=== PATIENT | male | born 1995 | race Caucasian/White ===

== ENCOUNTER 2019-06-02 14:39 | Inpatient (IN) | payer OTHER, MEDICAID ==
[~2019-06-02] VITALS: Ht 170.2 cm; Wt 73.2 kg
[2019-06-02] MEDS ORDERED: RISP1 PO (19:55)
[2019-06-02] MEDS ORDERED: PROZ10 PO (19:55)
[2019-06-02] MEDS ORDERED: HALOPERIDOL 5 MG TABLET PO PRN (21:15)
[2019-06-02] MEDS ORDERED: LORazepam 2 MG TABLET PO PRN (21:15)
[2019-06-02] MEDS ORDERED: ZOLPIDEM TARTRATE 10 MG TABLET PO PRN (21:15)
[2019-06-02 21:36] VITALS: BP 114/66
[2019-06-02] MEDS ORDERED: INFLUENZA VIRUS VACCINE QVS 2019-20 (3YR+)/PF 60 MCG/0.5 ML SYRINGE IM ONE (21:45)
[2019-06-03 06:13] VITALS: BP 100/60
[2019-06-03 06:16] VITALS: BP 100/60
[2019-06-03 08:00] VITALS: BP 105/48
[2019-06-03] MEDS ORDERED: BACITRACIN 28.4 GM OINTMENT TP PRN (08:00)
[2019-06-03] MEDS ORDERED: CloNIDine HCL 0.1 MG TABLET PO PRN (08:00)
[2019-06-03] MEDS ORDERED: ACETAMINOPHEN 325 MG TABLET PO PRN (08:00)
[2019-06-03] MEDS ORDERED: OMEPRAZOLE 20 MG CAPSULE PO PRN (08:00)
[2019-06-03] MEDS ORDERED: PETROLATUM,WHITE 28 GM JELLY TP PRN (08:00)
[2019-06-03] MEDS ORDERED: ONDANSETRON HCL 4 MG TABLET PO PRN (08:00)
[2019-06-03] MEDS ORDERED: LOPERAMIDE HCL 2 MG CAPSULE PO PRN (08:00)
[2019-06-03] MEDS ORDERED: ALBUTEROL SULFATE HFA 90 MCG/PUFF 8 GM INHALER IH PRN (08:00)
[2019-06-03] MEDS ORDERED: MAGNESIUM HYDROXIDE SUSPENSION 30 ML UDCUP PO PRN (08:00)
[2019-06-03] MEDS ORDERED: IBUPROFEN 600 MG TABLET PO PRN (08:00)
[2019-06-03] MEDS ORDERED: DOCUSATE SODIUM 100 MG CAPSULE PO PRN (08:00)
[2019-06-03] MEDS ORDERED: BENZOCAINE/MENTHOL LOZENGE MM PRN (08:00)
[2019-06-03] MEDS ORDERED: MAG HYDROX/AL HYDROX/SIMETH ES 30 ML SUSPENSION UDCUP PO PRN (08:00)
[2019-06-03 08:47] LABS: BASOPHILS % (AUTO) 0.4 % (0.0-2.0); EOSINOPHILS % (AUTO) 2.3 % (1.0-6.0); HEMATOCRIT 41.4 % (41-53); HEMOGLOBIN 14.4 g/dL (13.5-17.5); LYMPHOCYTES # (AUTO) 1.9 K/uL (1.0-4.8); LYMPHOCYTES % (AUTO) 45.2 % (22.0-44.0); MEAN CORPUSCULAR HEMOGLOBIN 29.9 pg (26.0-34.0); MEAN CORPUSCULAR HGB CONC 34.9 G/dL (31.0-37.0); MEAN CORPUSCULAR VOLUME 86 fL (80-100); MONOCYTES # (AUTO) 0.5 K/uL (0.1-1.0); MONOCYTES % (AUTO) 12.1 % (2.0-9.0); NEUTROPHILS # (AUTO) 1.7 K/uL (1.8-7.7); PLATELET COUNT (AUTO) 233 K/uL (150-450); RED BLOOD CELL COUNT(AUTO) 4.83 MIL/uL (4.50-5.90); RED CELL DISTRIBUTION WIDTH 13.5 % (11.5-14.5)
[2019-06-03 09:25] LABS: HEMOGLOBIN A1C 4.9 % (4.5-6.2)
[2019-06-03 09:37] LABS: ALANINE AMINOTRANSFERASE 25 U/L (12-78); ALBUMIN 4.2 g/dL (3.4-5.0); ALKALINE PHOSPHATASE 78 U/L (46-116); ANION GAP 8 mmol/L (8-16); ASPARTATE AMINOTRANSFERASE 14 U/L (15-37); BILIRUBIN,TOTAL 0.3 mg/dL (0.1-1.0); CALCIUM, TOTAL 8.8 mg/dL (8.8-10.5); CARBON DIOXIDE 28 mmol/L (22-29); CHLORIDE 103 mmol/L (98-107); CHOL/HDL RATIO 4.1 (4.2-7.3); CHOLESTEROL 152 mg/dL (131-200); CREATININE 1.04 mg/dL (0.60-1.30); FREE T4 (FREE THYROXINE) 0.86 ng/dL (0.76-1.46); GLOMERULAR FILTR. RATE CALC > 60 mL/min (>60); GLUCOSE,RANDOM 76 mg/dL (70-110); HDL CHOLESTEROL 37 mg/dL (40-60); LDL CHOL (CALC.) 98 mg/dL (0-130); POTASSIUM 3.8 mmol/L (3.5-5.1); SODIUM SERUM 139 mmol/L (136-145); THYROID STIMULATING HORMONE 3.47 uIU/mL (0.36-3.74); TOTAL PROTEIN, SERUM 7.8 g/dL (6.4-8.2); TRIGLYCERIDES 87 mg/dL (15-150); UREA NITROGEN, BLOOD 13 mg/dL (7-18)
[2019-06-03 17:45] VITALS: BP 101/43
[2019-06-03 18:05] VITALS: BP 101/68
[2019-06-04 07:21] VITALS: BP 126/76
[2019-06-04 08:08] VITALS: BP 116/62
[2019-06-04] MEDS: FLUoxetine HCL 20 MG CAPSULE PO SCH (09:13)
[2019-06-04 16:41] VITALS: BP 119/66
[2019-06-04] MEDS: MUPIROCIN CALCIUM 2% 22 GM OINTMENT NASAL SCH (17:07)
[2019-06-05 07:01] VITALS: BP 120/63
[2019-06-05 08:13] VITALS: BP 128/78
[2019-06-05] MEDS: FLUoxetine HCL 20 MG CAPSULE PO SCH (08:29)
[2019-06-05] MEDS: MUPIROCIN CALCIUM 2% 22 GM OINTMENT NASAL SCH ×2 (08:29→16:08)
[2019-06-05 16:24] VITALS: BP 114/61
[2019-06-06 05:54] VITALS: BP 122/74
[2019-06-06 07:59] LABS: APPEARANCE,URINE CLOUDY (CLEAR); BILIRUBIN,URINE NEGATIVE (NEGATIVE); GLUCOSE, URINE (UA) NEGATIVE (NEGATIVE); KETONES,URINE NEGATIVE (NEGATIVE); LEUKOCYTE ESTERASE ,URINE NEGATIVE (NEGATIVE); NITRATE,URINE NEGATIVE (NEGATIVE); OCCULT BLOOD,URINE NEGATIVE (NEGATIVE); PROTEIN,URINE NEGATIVE (NEGATIVE); UROBILINOGEN,URINE 0.2 mg/dL (<=1.0)
[2019-06-06 08:07] LABS: AMPHET/METH SCREEN,URINE NEGATIVE (NEGATIVE); BARBITURATE SCREEN, URINE NEGATIVE (NEGATIVE); BENZODIAZEPINES SCREEN,URINE NEGATIVE (NEGATIVE); CANNABINOID SCREEN,URINE NEGATIVE (NEGATIVE); COCAINE SCREEN,URINE NEGATIVE (NEGATIVE); METHADONE SCREEN, URINE NEGATIVE (NEGATIVE); OPIATE SCREEN,URINE NEGATIVE (NEGATIVE); PHENCYCLIDINE SCREEN,URINE NEGATIVE (NEGATIVE)
[2019-06-06 08:10] VITALS: BP 110/68
[2019-06-06 08:23] LABS: AMORPHOUS SEDIMENT,UR Moderate /LPF (None Seen); BACTERIA,URINE None Seen /HPF (None Seen); RBC,URINE None Seen /HPF (0-2); SQUAMOUS EPITHELIAL CELL,UR Rare /LPF (None Seen); WBC,URINE None Seen /HPF (0-5)
[2019-06-06] MEDS: FLUoxetine HCL 20 MG CAPSULE PO SCH (08:37)
[2019-06-06] MEDS: MUPIROCIN CALCIUM 2% 22 GM OINTMENT NASAL SCH ×2 (08:38→17:19)
[2019-06-06 16:13] VITALS: BP 108/54
[2019-06-07 06:28] VITALS: BP 107/62
[2019-06-07 08:16] VITALS: BP 109/74
[2019-06-07] MEDS: FLUoxetine HCL 20 MG CAPSULE PO SCH (08:40)
[2019-06-07] MEDS: MUPIROCIN CALCIUM 2% 22 GM OINTMENT NASAL SCH ×2 (08:41→17:10)
[2019-06-07 16:09] VITALS: BP 103/53
[2019-06-07] MEDS: RisperiDONE 3 MG TABLET PO SCH (21:07)
[2019-06-08 04:41] VITALS: BP 113/81
[2019-06-08] MEDS: MUPIROCIN CALCIUM 2% 22 GM OINTMENT NASAL SCH ×2 (08:25→16:34)
[2019-06-08] MEDS: FLUoxetine HCL 20 MG CAPSULE PO SCH (08:25)
[2019-06-08] MEDS: RisperiDONE 3 MG TABLET PO SCH ×2 (08:25→16:34)
[2019-06-08 16:04] VITALS: BP 116/68
[2019-06-09 00:03] VITALS: BP 110/63
[2019-06-09] MEDS: FLUoxetine HCL 20 MG CAPSULE PO SCH (08:22)
[2019-06-09] MEDS: MUPIROCIN CALCIUM 2% 22 GM OINTMENT NASAL SCH ×2 (08:23→16:56)
[2019-06-09 08:28] VITALS: BP 110/65
[2019-06-09] MEDS: RisperiDONE 3 MG TABLET PO SCH ×2 (08:38→16:56)
[2019-06-09 16:00] VITALS: BP 115/60
[2019-06-10 03:25] VITALS: BP 118/69
[2019-06-10 08:00] VITALS: BP 110/64
[2019-06-10] MEDS: FLUoxetine HCL 20 MG CAPSULE PO SCH (08:06)
[2019-06-10] MEDS: RisperiDONE 3 MG TABLET PO SCH (08:06)
[2019-06-10] MEDS: MUPIROCIN CALCIUM 2% 22 GM OINTMENT NASAL SCH (08:07)
[2019-06-10] MEDS ORDERED: FLUO-191 PO (11:51)
[2019-06-10] MEDS ORDERED: RISP3 PO (11:51)
== END 2019-06-10 15:00 | disposition home or self-care (01) | DRG 885 ==
LOC: B3A 21:06
PROVIDERS: ADMIT Psychiatry & Neurology Psychiatry; ATTEND Psychiatry & Neurology Psychiatry
DX: F25.1 Schizoaffective disorder, depressive type (principal); R45.851 Suicidal ideations; Z28.21 Immunization not carried out because of patient refusal; F41.9 Anxiety disorder, unspecified; G47.00 Insomnia, unspecified; K59.00 Constipation, unspecified; Z59.0 Homelessness; Z79.899 Other long term (current) drug therapy
CPT/HCPCS: 80307; 83036; 84439; 84443; 87081